=== PATIENT | male | born 1970 | race African-American/Black ===

== ENCOUNTER 2020-06-18 08:28 | Emergency (ER) | payer OTHER, MEDICARE ==
[~2020-06-18] VITALS: Ht 187.9 cm; Wt 102.2 kg
[~2020-06-18 08:28] MED LIST: ACHD5005 PO; AMLO10TA82 PO; ASP81TEC PO; ASPI-9 PO; CLIN-62 PO; CLIN300C3 PO; GEMF600T3 PO; HYDR-1231 PO; HYDR1TAB PO; IBP200T PO; METH4TAB PO; OMEP20TA2 PO; PRED5DRO2I OU; PRED5DRO5 OP; SULF1TAB38 PO; [UNRECOGNIZED DRUG - REMARK]; [UNRECOGNIZED DRUG - REMARK]; [UNRECOGNIZED DRUG - REMARK] PO
[2020-06-18 09:11] LABS: BASOPHILS % (AUTO) 1 % (0-10); EOSINOPHILS # (AUTO) 0.3 10^3/uL (0.0-0.3); EOSINOPHILS % (AUTO) 5 % (0-10); HEMATOCRIT 52 % (40-54); HEMOGLOBIN 16.9 g/dL (13.3-17.7); LYMPHOCYTES # (AUTO) 1.5 10^3/uL (1.0-4.0); LYMPHOCYTES % (AUTO) 25 % (12-44); MEAN CORPUSCULAR HEMOGLOBIN 29 pg (25-34); MEAN CORPUSCULAR HGB CONC 33 g/dL (32-36); MEAN CORPUSCULAR VOLUME 88 fL (80-99); MEAN PLATELET VOLUME 9.5 fL (9.0-12.2); MONOCYTES # (AUTO) 0.5 10^3/uL (0.0-1.0); MONOCYTES % (AUTO) 9 % (0-12); NEUTROPHILS # (AUTO) 3.5 10^3/uL (1.8-7.8); NEUTROPHILS % (AUTO) 61 % (42-75); PLATELET COUNT 266 10^3/uL (130-400); WHITE BLOOD COUNT 5.8 10^3/uL (4.3-11.0)
[2020-06-18] MEDS ORDERED: ASPIRIN 81 MG CHEW (CHILDREN'S ASA) PO ONE (09:15)
[2020-06-18] MEDS ORDERED: ONDANSETRON 4 MG/2 ML (SDV) Z0FRAN IVP ONE (09:15)
[2020-06-18] MEDS: NITROGLYCERIN 0.4 MG SL TABS BTL 25'S SL PRN ×2 (09:16→09:27)
[2020-06-18 09:17] LABS: INR 1.1 (0.8-1.4); PROTHROMBIN TIME PATIENT 14.4 SEC (12.2-14.7)
[2020-06-18 09:18] LABS: ALBUMIN 4.3 GM/DL (3.2-4.5); CHLORIDE 105 MMOL/L (98-107); SODIUM 141 MMOL/L (135-145)
[2020-06-18 09:19] LABS: CALCIUM 9.3 MG/DL (8.5-10.1)
[2020-06-18 09:20] LABS: GLUCOSE 88 MG/DL (70-105); TOTAL PROTEIN 8.4 GM/DL (6.4-8.2)
--- NOTE | 2020-06-18 09:20 | NUR ---
COVID SWAB DONE BY DR CASE
[2020-06-18 09:21] LABS: CARBON DIOXIDE 30 MMOL/L (21-32)
[2020-06-18 09:22] LABS: BILIRUBIN,TOTAL 0.5 MG/DL (0.1-1.0)
[2020-06-18 09:24] LABS: ALKALINE PHOSPHATASE 85 U/L (40-136); CREATININE SERUM 1.25 MG/DL (0.60-1.30); GFR ESTIMATED > 60
--- NOTE | 2020-06-18 09:24 | Diagnostic Imaging Report ---
INDICATION: Chest pain Portable chest 9:22 AM Heart size and pulmonary vascularity are normal. Lungs are clear. There are no effusions or pneumothoraces. IMPRESSION: Negative chest Dictated by: Dictated on workstation # [id number]
[2020-06-18 09:25] LABS: BUN/CREATININE RATIO 10
[2020-06-18 09:27] LABS: ALANINE AMINOTRANSFERASE 37 U/L (0-55)
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
[2020-06-18 09:48] LABS: TSH (THYROID ANALYZER) 0.43 UIU/ML (0.35-4.94)
--- NOTE | 2020-06-18 09:55 | NUR ---
Bhumi farrar in [facility] - 06/18/20 at 0956 by PMCCLURE TRIED TO CALL SON AND GIVE UP DATE PHONE WENT TO VOICE MAIL
[2020-06-18] MEDS ORDERED: amLODIPine 5 MG (NORVASC) TAB PO ONE (10:15)
[2020-06-18] MEDS ORDERED: ONDANSETRON 4 MG (ZOFRAN) ORAL DISSOLVE TAB SL ONE (10:15)
[2020-06-18] MEDS ORDERED: KETOROLAC 30 MG/ML VIAL IVP ONE (11:00)
--- NOTE | 2020-06-18 11:15 | NUR ---
Bhumi farrar in [facility] - 06/18/20 at 1138 by PMCCLURE UPDATE TO SON
[2020-06-18] MEDS ORDERED: IOHEXOL 350 MG/ML 100 ML (OMNIPAQUE 350) VIAL IV ONE (11:30)
[2020-06-18] MEDS ORDERED: NS 100 ML (IVPB) BAG IV ONE (11:30)
[2020-06-18] MEDS ORDERED: CATHETER FLUSH 10 ML SYR IV PRN (11:30)
[2020-06-18] MEDS ORDERED: HOLD METFORMIN - RECEIVED CONTRAST 20 ML VIAL IV SCH (11:30)
--- NOTE | 2020-06-18 11:53 | NUR ---
RETURN FROM CT.
--- NOTE | 2020-06-18 12:07 | Diagnostic Imaging Report ---
PROCEDURE: CT angiography of the chest with contrast. TECHNIQUE: Multiple contiguous axial images were obtained through the chest after uneventful bolus administration of intravenous contrast. 3D reconstructed CTA MIP acquisitions were also performed. Auto Exposure Controls were utilized during the CT exam to meet ALARA standards for radiation dose reduction. INDICATION: Chest pain and productive cough. No prior studies are available for comparison. Evaluation of pulmonary arterial system is without evidence of thromboembolism. No filling defects are seen within central, lobar or segmental branches. There is no pericardial or pleural fluid identified. No pulmonary infiltrates, nodules or masses are seen. Upper abdomen is unremarkable. IMPRESSION: No evidence of pulmonary embolism. Dictated by: Dictated on workstation # [id number]
[2020-06-18] MEDS ORDERED: ASPI-1238 PO (13:07)
[2020-06-18] MEDS ORDERED: AMLO-251 PO (13:07)
[2020-06-18 13:31] VITALS: BP 128/86
== END 2020-06-18 13:29 | disposition home or self-care (01) ==
LOC: EDUNIT# 08:28 → ER 08:31
DX: R07.89 Other chest pain (principal); I10 Essential (primary) hypertension; R06.02 Shortness of breath; R05 Cough; R09.81 Nasal congestion; R11.0 Nausea; R20.2 Paresthesia of skin; R10.9 Unspecified abdominal pain; I25.10 Atherosclerotic heart disease of native coronary artery without angina pectoris; Z86.73 Personal history of transient ischemic attack (TIA), and cerebral infarction without residual deficits; Z79.82 Long term (current) use of aspirin; Z88.2 Allergy status to sulfonamides; Z88.1 Allergy status to other antibiotic agents; Z88.5 Allergy status to narcotic agent; Z88.0 Allergy status to penicillin; Z95.9 Presence of cardiac and vascular implant and graft, unspecified; Z87.891 Personal history of nicotine dependence; Z20.822 Contact with and (suspected) exposure to COVID-19
CPT/HCPCS: 71045; 71275; 80053; 83615; 83735; 83874; 83880; 84145; 84443; 84484; 85025; 85379; 85610; 85730; 86141; 87804; 93041; U0002; 36415; 87635; 93005

== ENCOUNTER 2021-07-05 15:44 | Emergency (ER) | payer MEDICARE, OTHER ==
[~2021-07-05 15:44] MED LIST changes: +AMLO-251 PO; +ASPI-1238 PO
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
[2021-07-05] MEDS ORDERED: Molnupiravir PO (17:15)
[2021-07-05] MEDS ORDERED: ACETAMINOPHEN 500 MG TAB (TYLENOL) PO ONE (17:30)
[2021-07-05 17:32] VITALS: BP 147/90
== END 2021-07-05 17:32 | disposition home or self-care (01) ==
LOC: EDUNIT# 15:44 → ER 15:45
DX: U07.1 COVID-19 (principal); I10 Essential (primary) hypertension; Z86.73 Personal history of transient ischemic attack (TIA), and cerebral infarction without residual deficits; Z79.82 Long term (current) use of aspirin
CPT/HCPCS: 87636; 99283

== ENCOUNTER 2021-10-17 01:41 | Observation (INO) | payer OTHER, MEDICARE ==
[2021-10-17] VITALS (10 sets, daily range): BP systolic 115–187; BP diastolic 54–126
[~2021-10-17] VITALS: Ht 188 cm; Wt 109.6 kg
[~2021-10-17 01:41] MED LIST changes: +Molnupiravir PO
[2021-10-17] MEDS ORDERED: NITROGLYCERIN 0.4 MG SL TABS BTL 25'S SL PRN (02:15)
[2021-10-17] MEDS ORDERED: ONDANSETRON 4 MG/2 ML (SDV) Z0FRAN IVP PRN (02:15)
[2021-10-17] MEDS: ACETAMINOPHEN 500 MG TAB (TYLENOL) PO PRN ×2 (02:25→06:32)
[2021-10-17] MEDS ORDERED: ACETAMINOPHEN 500 MG TAB (TYLENOL) ONE (02:26)
[2021-10-17 02:35] LABS: BASOPHILS # (AUTO) 0.1 10^3/uL (0.0-0.1); BASOPHILS % (AUTO) 1 % (0-10); EOSINOPHILS # (AUTO) 0.3 10^3/uL (0.0-0.3); EOSINOPHILS % (AUTO) 4 % (0-10); HEMATOCRIT 47 % (40-54); HEMOGLOBIN 15.6 g/dL (13.3-17.7); LYMPHOCYTES # (AUTO) 2.1 10^3/uL (1.0-4.0); LYMPHOCYTES % (AUTO) 28 % (12-44); MEAN CORPUSCULAR HEMOGLOBIN 29 pg (25-34); MEAN CORPUSCULAR HGB CONC 33 g/dL (32-36); MEAN CORPUSCULAR VOLUME 88 fL (80-99); MEAN PLATELET VOLUME 9.4 fL (9.0-12.2); MONOCYTES # (AUTO) 0.8 10^3/uL (0.0-1.0); MONOCYTES % (AUTO) 11 % (0-12); NEUTROPHILS # (AUTO) 4.1 10^3/uL (1.8-7.8); NEUTROPHILS % (AUTO) 55 % (42-75); PLATELET COUNT 241 10^3/uL (130-400); WHITE BLOOD COUNT 7.4 10^3/uL (4.3-11.0)
[2021-10-17 02:43] LABS: CHLORIDE 106 MMOL/L (98-107); POTASSIUM 3.9 MMOL/L (3.6-5.0); SODIUM 139 MMOL/L (135-145)
[2021-10-17 02:44] LABS: CALCIUM 8.7 MG/DL (8.5-10.1)
[2021-10-17 02:45] LABS: GLUCOSE 97 MG/DL (70-105)
[2021-10-17 02:46] LABS: CARBON DIOXIDE 20 MMOL/L (21-32)
[2021-10-17 02:49] LABS: CREATININE SERUM 1.12 MG/DL (0.60-1.30); GFR ESTIMATED 80
[2021-10-17 02:50] LABS: BUN/CREATININE RATIO 13
--- NOTE | 2021-10-17 08:06 | Short Stay Summary-Hospitalist ---
History of Present Illness HPI/Chief Complaint Patient is a 50-year-old -[place] male with past medical history of hypertension, CVA, blindness who presented to the emergency department at outside hospital due to chest pain. He states symptoms started roughly 2 days ago. He complains of a headache and body aches. He had been on antihypertensives until about a month ago when he was moved out of the medical brown at the local shelter. He states that he tried to get by without them but over the last few days he started to feel worse and asked for his blood pressure to be checked and found it to be very high. He was brought into the [facility] for evaluation his blood pressure there was 213/125. He was transferred here for cardiology evaluation. This morning he reports feeling better though still having intermittent chest tightness. Date Seen 10/17/21 Time Seen by a Provider: 08:00 Attending Physician Franky Cardona MD PCP No,Local Physician Referring Physician Date of Admission October 17, 2021 at 01:54 Home Medications & Allergies Home Medications Reviewed patient Home Medication Reconciliation performed by pharmacy medication reconciliations fleet technician and/or nursing. Patients Allergies have been reviewed. Allergies Allergies Coded Allergies Sulfa (Sulfonamide Antibiotics) (Unverified Allergy, Unknown, 09/08/14) doxycycline (Unverified Allergy, Unknown, 09/08/14) hydrocodone (Unverified Allergy, Unknown, 09/08/14) Uncoded Allergies PENICILLIN ( Allergy, Unknown, 09/08/14) Past Gaqyint-Azibld-Gbdzul Hx Patient Social History Tobacco Use?: Yes Tobacco type used: Cigarettes Smoking Status: Former Smoker Smokeless Tobacco Frequency: Never a User Use of E-Cig and/or Vaping dev: Yes E-Cig or Vaping type used: Nicotine Use of E-Cig and/or Vaping Gabino: Current Someday User Substance use?: Yes Substance type: Marijuana Substance frequency: Couple times a week Alcohol Use?: No Pt feels they are or have been: No Immunizations Up To Date Hepatitis A: No Hepatitis B: No PED Vaccines UTD: Yes Seasonal Allergies Seasonal Allergies: No Current Status Advance Directives: No Communicates: Verbally Primary Language: Estonian Preferred Spoken Language: Estonian Is interpretation needed?: No Sensory deficits: Vision impairment Implanted or Applied Medical D: None Past Medical History Surgeries: Abdominal, Eye Surgery Hypertension Stroke Macular Degeneration Loss of Vision: Bilateral Hearing Impairment: Denies Blood Disorders: No Adverse Reaction/Blood Tranf: No Family Medical History Reviewed Nursing Family Hx Heart Disease, Hypertension Review of Systems Constitutional: chills; No fever; malaise EENTM: vision loss (chronic) Respiratory: No cough; short of breath (with deep breaths) Cardiovascular: chest pain; No edema, No Hx of Intervention, No palpitations, No syncope Gastrointestinal: No abdominal pain, No nausea, No vomiting Genitourinary: no symptoms reported Musculoskeletal: muscle cramps Skin: no symptoms reported Psychiatric/Neurological: No Symptoms Reported Physical Exam Physical Exam Vital Signs Vital Signs - First Documented 10/17/21 10/17/21 10/17/21 10/17/21 01:54 01:55 01:57 01:58 Temp 36.4 Pulse 65 Resp 21 B/P (MAP) 168/100 (128) Pulse Ox 97 O2 Delivery Room Air Capillary Refill : Height, Weight, BMI Height: 6'2" Weight: 170lbs. oz. [id number]; 31.09 BMI Method:Stated General Appearance: No Apparent Distress, WD/WN HEENT: Moist Mucous Membranes; No Scleral Icterus (L), No Scleral Icterus (R) Neck: Normal Inspection, Supple Respiratory: Lungs Clear, No Accessory Muscle Use, No Respiratory Distress Cardiovascular: Regular Rate, Rhythm, No JVD, No Murmur Gastrointestinal: Normal Bowel Sounds, Non Tender, Soft Extremity: Normal Capillary Refill, No Calf Tenderness, No Pedal Edema Neurologic/Psychiatric: Alert, Oriented x3, Normal Mood/Affect Skin: Normal Color, Warm/Dry Results Results/Procedures Labs Laboratory Tests 10/17/21 02:26 Patient resulted labs reviewed. Short Stay Diagnosis Discharge Diagnosis-Short Stay Admission Diagnosis HTN Urgency Final Discharge Diagnosis HTN Urgency Conclusion Plan HTN Urgency Admitted here for HTN urgency and cardiology evaluation Troponins negtive BP improved along with chest pain Released from [facility] custody Echo ordered h/o CVA Blindness No acute needs, clinically significant Homelessness Reports does not have a home but does have a plan for safe DC Diagnosis/Problems Diagnosis/Problems (1) Hypertensive urgency Status: Acute (2) Hypertension Status: Chronic Qualifiers: Qualified Codes: I10 - Essential (primary) hypertension (3) Chest pain Qualifiers: Qualified Codes: R07.1 - Chest pain on breathing (4) 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
[2021-10-17] MEDS ORDERED: meTOproloL SUCCINATE 50 MG (TOPROL XL) TAB PO NR (10:30)
[2021-10-17] MEDS ORDERED: ASPIRIN E.C. 81 MG (ECOTRIN) TAB PO NR (10:30)
[2021-10-17] MEDS ORDERED: LOSARTAN 25 MG (COZAAR) TAB PO NR (10:30)
--- NOTE | 2021-10-17 10:46 | Consultation-Cardiology ---
HPI-Cardiology Cardiology Consultation: Date of Consultation 10/17/21 Date of Admission 10/17/21 Attending Physician Chantelle Cardona MD Admitting Physician No,Local Physician Consulting Physician GABBY TAVERAS JR, MD HPI: Time Seen by a Provider: 10:40 Chief Complaint: Reason for consultation: Hypertensive urgency and chest pain. I had the pleasure of seeing Phu in the intensive care unit at [facility] in [place], [place] today. He has a history of mild coronary artery disease detected at cardiac catheterization in 2012 and hypertension. Unfortunately, around May 2021 he became homeless. At that time he could not afford his blood pressure medication and stopped this. He recently became incarcerated due to a longstanding unpaid fine. 2 days ago he started feeling dizzy and lightheaded while in care home. He then started having chest tightness and shortness of breath. He did not alert the staff until yesterday and asked if his blood pressure could be checked. His blood pressure was found to be markedly elevated and he was brought to [facility] emergency room. In the outside emergency room, his blood pressure was also markedly elevated. He was having ongoing chest pain. Therefore, he was transferred to our hospital for further treatment and evaluation. He was given an unknown antihypertensive medication at the outside facility. This morning his chest discomfort has markedly improved. His breathing is also improved. He denies paroxysmal nocturnal dyspnea, orthopnea, palpitations, syncope, or ankle edema. Since being admitted to our hospital earlier this morning, he has been released from incarceration. His brother lives here in [place] and he plans to go to his house following discharge. Certain portions of this document may have been dictated utilizing voice recognition technology. Inherent to this technology, typographical and grammatical errors may exist. As much as I am diligent to identify and correct these mistakes, some errors may remain in the document. Review of Systems-Cardiology Review of Systems Other comments Review of 10 organ systems is as per the history of present illness, otherwise negative. AVE-Rbbvap-Nmkhjx Hx Patient Social History Employed/Student: unemployed Smoking Status: Former Smoker Have you traveled recently?: No Alcohol Use?: No Substance type: Marijuana Pt feels they are or have been: No Tobacco type used: Cigarettes Immunizations Up To Date Tetanus Booster (TDap): Less than 5yrs Past Medical History PMH As described under Assessment. Family Medical History Family Medical History: The patient does not know of any family history of premature coronary artery disease in first-degree relatives. Allergies and Home Medications Allergies Coded Allergies: Sulfa (Sulfonamide Antibiotics) (Unverified Allergy, Unknown, 09/08/14) doxycycline (Unverified Allergy, Unknown, 09/08/14) hydrocodone (Unverified Allergy, Unknown, 09/08/14) Uncoded Allergies: PENICILLIN (Allergy, Unknown, 09/08/14) Patient Home Medication List Home Medication List Reviewed: Yes Amlodipine Besylate (Norvasc Tablet) 10 Mg Tablet, 10 MG PO DAILY, (Reported) Entered as Reported by: MARK ROSSI on 11/10/12 1043 Amlodipine Besylate (Amlodipine Besylate) 10 Mg Tablet, 10 MG PO DAILY Prescribed by: KACIE WAYNE on 06/18/20 1307 Aspirin (Aspirin EC) 81 Mg Tablet.dr, 81 MG PO DAILY Prescribed by: KACIE WAYNE on 06/18/20 1307 Aspirin/Calcium Carbonate/Mag (Aspirin Buffered 325 Mg Tab) 325 Mg Tablet, 325 MG PO DAILY, (Reported) Entered as Reported by: LA COLLADO on 09/08/14 0907 [Molnupiravir] , 800 MG PO BID Prescribed by: KACIE WAYNE on 07/05/21 1715 Exam Vital Signs Vital Signs Date Time Temp Pulse Resp B/P (MAP) Pulse Ox O2 Delivery O2 Flow Rate FiO2 10/17/21 09:04 36.7 10/17/21 08:00 66 16 151/54 (86) 97 Room Air Physical Exam General: Alert. No acute distress. Well nourished and appears stated age. Eye: Extraocular movements are intact. Conjunctivae are cloudy. There are no xanthelasma. HENT: Normocephalic. Atraumatic. Carotid pulsations 2/2 without bruits. Neck: Jugular venous pressure does not appear elevated. No thyromegaly appreciated. Respiratory: Lungs are clear to auscultation. Respirations are non-labored. Breath sounds are equal. Symmetrical chest wall expansion. Cardiovascular: Normal rate. Regular rhythm. No murmur. No gallop. Point of maximal impulse is not appear displaced. Good pulses equal in all extremities. No edema. Gastrointestinal: Soft. Normal bowel sounds. Skin: Skin turgor is normal. There is no pallor. Musculoskeletal: No kyphosis or scoliosis appreciated. Neurologic: Alert and oriented to person, place, time. Cranial nerves 3-12 appear grossly intact. The patient has good motor tone strength in the upper and lower extremities bilaterally. Psychiatric: Cooperative. Appropriate mood & affect. Labs Laboratory Tests Test 10/17/21 02:26 Range/Units White Blood Count 7.4 4.3-11.0 10^3/uL Red Blood Count 5.36 4.30-5.52 10^6/uL Hemoglobin 15.6 13.3-17.7 g/dL Hematocrit 47 40-54 % Mean Corpuscular Volume 88 80-99 fL Mean Corpuscular Hemoglobin 29 25-34 pg Mean Corpuscular Hemoglobin Concent 33 32-36 g/dL Red Cell Distribution Width 13.1 10.0-14.5 % Platelet Count 241 130-400 10^3/uL Mean Platelet Volume 9.4 9.0-12.2 fL Immature Granulocyte % (Auto) 1 % Neutrophils (%) (Auto) 55 42-75 % Lymphocytes (%) (Auto) 28 12-44 % Monocytes (%) (Auto) 11 0-12 % Eosinophils (%) (Auto) 4 0-10 % Basophils (%) (Auto) 1 0-10 % Neutrophils # (Auto) 4.1 1.8-7.8 10^3/uL Lymphocytes # (Auto) 2.1 1.0-4.0 10^3/uL Monocytes # (Auto) 0.8 0.0-1.0 10^3/uL Eosinophils # (Auto) 0.3 0.0-0.3 10^3/uL Basophils # (Auto) 0.1 0.0-0.1 10^3/uL Immature Granulocyte # (Auto) 0.1 0.0-0.1 10^3/uL Sodium Level 139 135-145 MMOL/L Potassium Level 3.9 3.6-5.0 MMOL/L Chloride Level 106 98-107 MMOL/L Carbon Dioxide Level 20 L 21-32 MMOL/L Anion Gap 13 5-14 MMOL/L Blood Urea Nitrogen 14 7-18 MG/DL Creatinine 1.12 0.60-1.30 MG/DL Estimat Glomerular Filtration Rate 80 BUN/Creatinine Ratio 13 Glucose Level 97 70-105 MG/DL Calcium Level 8.7 8.5-10.1 MG/DL Troponin I < 0.028 <0.028 NG/ML Triglycerides Level 153 H <150 MG/DL Cholesterol Level 183 < 200 MG/DL LDL Cholesterol Direct 131 H 1-129 MG/DL VLDL Cholesterol 31 5-40 MG/DL HDL Cholesterol 42 40-60 MG/DL Thyroid Stimulating Hormone (TSH) 1.29 0.35-4.94 UIU/ML Radiology ECHOCARDIOGRAM (10/17/2021): 1. Left ventricle: The cavity size is normal. There is moderate concentric hypertrophy. Systolic function is mildly reduced. The estimated ejection fraction is 40-45%. There is mild global hypokinesis. Doppler parameters are consistent with abnormal left ventricular relaxation (grade 1 diastolic dysfunction). 2. Right atrium: The right atrium is mildly dilated at 19 cm. 3. Aortic valve: There is mild aortic valve sclerosis. There is aortic mild regurgitation with a pressure half-time of 559 ms. 4. Pulmonary arteries: The estimated pulmonary artery systolic pressure is 36 mmHg assuming a right atrial pressure of 5 mmHg. Diagnosis/Problems Diagnosis/Problems (1) Hypertensive urgency Status: Acute Assessment & Plan: This most likely occurred due to stopping his antihypertensive medication a few months ago. He had an echocardiogram this morning that shows mild left ventricular systolic dysfunction. I recommend we stop his amlodipine and start him on metoprolol succinate and losartan. From a cardiac standpoint, he can be discharged home. (2) Chest pain Assessment & Plan: Exact etiology unclear. This may have been related to the hypertensive emergency. His chest discomfort is now improved. His troponin level was undetectable. His electrocardiogram from the outside emergency room did not show any evidence of a prior infarct or ischemia at rest. I will consider having him undergo an ischemic evaluation as an outpatient. I have ordered aspirin, beta-crissy, and statin medication. (3) Coronary artery disease without angina pectoris Assessment & Plan: He had a cardiac catheterization in 2012. At [facility] and this showed mild disease of the posterior descending artery. As above, I recommend starting him on aspirin, beta-crissy, and statin medication. There is no indication for cardiac catheterization at this time. I suspect his chest discomfort was related to the hypertensive urgency and does not represent unstable angina in light of the findings noted above. (4) Cardiomyopathy Assessment & Plan: His echocardiogram shows mild left ventricular systolic dysfunction. This may be related to hypertensive heart disease. As above, I have ordered metoprolol succinate and losartan. I have asked him to follow-up with our office within the next month. I gave him my contact information and also placed an order for the staff to contact my office to get him a follow-up appointment. Today is Tuesday so they will need to leave a message with my office. (5) Mixed hyperlipidemia Assessment & Plan: His LDL level is mildly elevated. I have ordered a statin agent. (6) Obesity Assessment & Plan: He needs to work on weight loss. (7) Electronic cigarette use Assessment & Plan: He was advised of the potentially harmful side effects of electronic cigarette use and cessation counseling was provided. Problem Qualifiers (1) Chest pain: Chest pain type: chest pain on breathing Qualified Codes: R07.1 - Chest pain on breathing GABBY TAVERAS JR, MD October 17, 2021 10:46
[2021-10-17] MEDS ORDERED: NITR0.4T42 SL (10:54)
[2021-10-17] MEDS ORDERED: LOSA25TA41 PO (10:54)
[2021-10-17] MEDS ORDERED: METO50TA7 PO (10:54)
[2021-10-17] MEDS ORDERED: ROSU10TA28 PO (10:54)
--- NOTE | 2021-10-17 11:46 | Discharge Inst-Simple/Standard ---
Discharge Inst-Standard Patient Instructions/Follow Up Plan of Care/Instructions/FU: Please continue take your medications as written. Please follow-up with your primary care provider to follow-up this hospital stay. Please follow-up with Dr. Enciso for further cardiac needs. Activity as Tolerated: Yes Discharge Diet: Cardiac Diet Return to The Hospital For: Chest pain, shortness of breath, elevated blood pressure, if you feel you are getting worse. FRANKY JOHNSON MD October 17, 2021 11:46
[2021-10-17] MEDS ORDERED: ROSUVASTATIN 10 MG (CRESTOR) TABLET PO SCH (21:00)
[2021-10-18] MEDS ORDERED: ASPIRIN E.C. 81 MG (ECOTRIN) TAB PO SCH (09:00)
[2021-10-18] MEDS ORDERED: meTOproloL SUCCINATE 50 MG (TOPROL XL) TAB PO SCH (09:00)
[2021-10-18] MEDS ORDERED: LOSARTAN 25 MG (COZAAR) TAB PO SCH (09:00)
== END 2021-10-17 11:59 | disposition home or self-care (01) ==
LOC: ICU 01:54
PROVIDERS: ADMIT Family Medicine; ATTEND Family Medicine
DX: I16.0 Hypertensive urgency (principal); Z86.73 Personal history of transient ischemic attack (TIA), and cerebral infarction without residual deficits; H54.7 Unspecified visual loss; Z59.00 Homelessness unspecified
CPT/HCPCS: 80048; 80061; 84443; 84484; 85025; 93005; 93306; G0378; G0379; 36415

== ENCOUNTER 2021-11-17 10:37 | Emergency (ER) | payer MEDICARE ==
[~2021-11-17] VITALS: Ht 187 cm; Wt 104.0 kg
[~2021-11-17 10:37] MED LIST changes: +LOSA25TA41 PO; +METO50TA7 PO; +NITR0.4T42 SL; +ROSU10TA28 PO
[2021-11-17 11:00] LABS: BASOPHILS # (AUTO) 0.1 10^3/uL (0.0-0.1); BASOPHILS % (AUTO) 1 % (0-10); EOSINOPHILS # (AUTO) 0.2 10^3/uL (0.0-0.3); EOSINOPHILS % (AUTO) 3 % (0-10); HEMATOCRIT 50 % (40-54); HEMOGLOBIN 16.7 g/dL (13.3-17.7); LYMPHOCYTES # (AUTO) 1.6 10^3/uL (1.0-4.0); LYMPHOCYTES % (AUTO) 24 % (12-44); MEAN CORPUSCULAR HEMOGLOBIN 29 pg (25-34); MEAN CORPUSCULAR HGB CONC 34 g/dL (32-36); MEAN CORPUSCULAR VOLUME 87 fL (80-99); MEAN PLATELET VOLUME 8.7 fL (9.0-12.2); MONOCYTES # (AUTO) 0.6 10^3/uL (0.0-1.0); MONOCYTES % (AUTO) 9 % (0-12); NEUTROPHILS # (AUTO) 4.2 10^3/uL (1.8-7.8); NEUTROPHILS % (AUTO) 63 % (42-75); PLATELET COUNT 271 10^3/uL (130-400); WHITE BLOOD COUNT 6.7 10^3/uL (4.3-11.0)
[2021-11-17] MEDS ORDERED: hydrOXYzine (VISTARIL/ATARAX) 25 MG capsule/tablet PO ONE (11:00)
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
[2021-11-17 11:25] LABS: PROTHROMBIN TIME PATIENT 13.9 SEC (12.2-14.7)
[2021-11-17 11:33] LABS: ALBUMIN 4.1 GM/DL (3.2-4.5)
[2021-11-17 11:34] LABS: POTASSIUM 3.8 MMOL/L (3.6-5.0)
[2021-11-17 11:35] LABS: CALCIUM 9.7 MG/DL (8.5-10.1)
[2021-11-17 11:36] LABS: TOTAL PROTEIN 7.9 GM/DL (6.4-8.2)
[2021-11-17 11:38] LABS: BILIRUBIN,TOTAL 0.7 MG/DL (0.1-1.0)
[2021-11-17 11:40] LABS: CREATININE SERUM 1.61 MG/DL (0.60-1.30)
[2021-11-17 11:43] LABS: MAGNESIUM 2.1 MG/DL (1.6-2.4)
--- NOTE | 2021-11-17 12:17 | Diagnostic Imaging Report ---
INDICATION: Shortness of air and chest tightness. TIME OF EXAM: 12:02 PM Correlation is made with prior chest from 06/18/2020. FINDING: The heart size is normal. The pulmonary vascularity is unremarkable. The lungs are clear. No infiltrate, effusion or pneumothorax is detected. IMPRESSION: No acute cardiopulmonary process is detected. Dictated by: Dictated on workstation # [id number]
== END 2021-11-17 16:49 | disposition home or self-care (01) ==
LOC: EDUNIT# 10:37 → ER 10:38
DX: R07.89 Other chest pain (principal); F43.0 Acute stress reaction; I10 Essential (primary) hypertension
CPT/HCPCS: 36415; 71045; 80053; 83690; 83735; 83874; 83880; 84484; 85025; 85610; 85730; 93005; 93041